=== PATIENT | male | born 2005 | race Caucasian/White ===

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

== ENCOUNTER 2024-01-07 19:10 | Emergency (ER) | payer OTHER ==
[~2024-01-07] VITALS: Ht 162.6 cm; Wt 56.7 kg
[~2024-01-07 19:10] MED LIST changes: +ACET-10509 PO
[2024-01-07 20:23] VITALS: BP 136/70; PULSE 74; RESP 16; TEMP 98.4; O2SAT 99
[2024-01-07] MEDS ORDERED: IBUP-2213 PO (21:39)
[2024-01-07] MEDS: KETOROLAC 60 MG/2 ML VIAL IM ONE (21:48)
== END 2024-01-07 21:48 | disposition home or self-care (01) ==
LOC: MED 19:10
DX: M25.551 Pain in right hip (principal); Z79.899 Other long term (current) drug therapy
CPT/HCPCS: 73502; 96372; 99283; J1885